=== PATIENT | male | born 1930 | race American Indian/Alaskan Native ===

== ENCOUNTER 2019-01-22 18:44 | Emergency (ER) | payer OTHER ==
[2019-01-22 19:53] VITALS: BP 147/76
[2019-01-22 20:04] LABS: Basophils % (Auto) 0.6 % (0.0-1.8); Eosinophils % (Auto) 0.4 % (0.0-4.3); Hematocrit 46.6 % (35.5-45.6); Hemoglobin 15.5 gm/dl (11.8-15.2); Lymphocytes # (Auto) 0.9 K/mm3 (1.2-5.4); Lymphocytes % (Auto) 12.6 % (13.4-35.0); Mean Corpuscular HGB Conc 33 % (32-34); Mean Corpuscular Volume 87 fl (84-94); Monocytes # (Auto) 0.6 K/mm3 (0.0-0.8); Monocytes % (Auto) 9.3 % (0.0-7.3); Platelet Count 232 K/mm3 (140-440); Red Blood Count 5.36 M/mm3 (3.65-5.03); Red Cell Distribution Width 14.1 % (13.2-15.2)
[2019-01-22 20:29] LABS: Albumin 4.3 g/dL (3.9-5); Calcium 9.6 mg/dL (8.4-10.2)
--- NOTE | 2019-01-22 21:28 | Emergency Department Report ---
ED Psych HPI - General Chief Complaint: Medical Clearance Stated Complaint: MEDICAL EVAL Time Seen by Provider: 01/22/19 20:26 Source: EMS Mode of arrival: Stretcher - History of Present Illness Initial Comments: Patient is a 88-year-old [place] male with past medical history hypertension dementia who is presenting with some aggressive behavior at this. Patient's was yelling and throwing things. The reason why the patient is actually at [place]. Patient was given some Ativan in route. Patient also is noted to have been eating and drinking less over the last several days and he was concerned that the patient may be dehydrated. Patient currently states he feels fine and has no complaints. He denies any cough, congestion pain fevers or chills. - Related Data Allergies Allergy/AdvReac Type Severity Reaction Status Date / Time Unable to Assess Allergy Unverified 01/22/19 19:07 ED Review of Systems ROS: Stated complaint: MEDICAL EVAL Other details as noted in HPI Comment: All other systems reviewed and negative ED Past Medical Hx - Past Medical History Previous Medical History?: Yes Hx Hypertension: Yes Hx Dementia: Yes - Social History Smoking Status: Former Smoker Substance Use Type: None ED Physical Exam - General Limitations: Altered Mental Status General appearance: alert, in no apparent distress - Head Head exam: Present: atraumatic, normocephalic - Eye Eye exam: Present: normal appearance - ENT ENT exam: Present: mucous membranes moist - Neck Neck exam: Present: normal inspection - Respiratory Respiratory exam: Present: normal lung sounds bilaterally. Absent: respiratory distress, wheezes, rales, rhonchi - Cardiovascular Cardiovascular Exam: Present: regular rate, normal rhythm. Absent: systolic murmur, diastolic murmur, rubs, gallop - GI/Abdominal GI/Abdominal exam: Present: soft, normal bowel sounds. Absent: distended, tenderness, guarding, rebound - Rectal Rectal exam: Present: deferred - Extremities Exam Extremities exam: Present: normal inspection - Back Exam Back exam: Present: normal inspection - Neurological Exam Neurological exam: Present: alert, oriented X3 - Psychiatric Psychiatric exam: Present: normal affect, normal mood - Skin Skin exam: Present: warm, dry, intact, normal color. Absent: rash ED Course Vital Signs 01/22/19 01/22/19 01/22/19 18:58 19:00 19:03 Temperature 98.1 F Pulse Rate 78 83 Respiratory 12 14 14 Rate Blood Pressure 147/76 145/71 O2 Sat by Pulse 97 96 96 Oximetry 01/22/19 01/22/19 01/22/19 19:16 19:17 19:30 Temperature Pulse Rate 78 81 Respiratory 17 17 14 Rate Blood Pressure 147/76 147/76 O2 Sat by Pulse 97 97 Oximetry 01/22/19 19:46 Temperature Pulse Rate 90 Respiratory 14 Rate Blood Pressure 147/76 O2 Sat by Pulse 97 Oximetry ED Medical Decision Making - Lab Data Result diagrams: 01/22/19 19:50 01/22/19 19:50 - Medical Decision Making Patient is a 88-year-old male who is brought in because of aggressive behavior and possible failure to thrive. Patient is calm and cooperative at this time he does have a sitter at bedside. Patient's laboratory studies did not show that he has any severe like to light abdomen out as patient be discharged home. Critical care attestation.: If time is entered above; I have spent that time in minutes in the direct care of this critically ill patient, excluding procedure time. ED Disposition Clinical Impression: Dementia Disposition: DC-01 TO HOME OR SELFCARE Is pt being admited?: No Does the pt Need Aspirin: No Condition: Stable Instructions: Dementia (ED) Additional Instructions: Patient is currently calm and cooperative. Patient's laboratory studies did not show any severe dehydration warranting admission. Referrals: HENRY ENNIS MD [Primary Care Provider] - 3-5 Days Time of Disposition: 21:28
== END 2019-01-22 22:29 | disposition home or self-care (01) ==
LOC: ED 18:44
DX: F03.90 Unspecified dementia, unspecified severity, without behavioral disturbance, psychotic disturbance, mood disturbance, and anxiety (principal); I10 Essential (primary) hypertension
CPT/HCPCS: 36415; 80053; 80320; 85025; G0480

== ENCOUNTER 2019-01-23 12:45 | Emergency (ER) | payer MEDICARE ==
[2019-01-23 13:11] VITALS: BP 128/62
[2019-01-23] MEDS ORDERED: NACL 0.9% 1000 ML 1,000 ML IV ONE (13:20)
--- NOTE | 2019-01-23 13:24 | Emergency Department Report ---
HPI - General Chief Complaint: Medical Clearance Time Seen by Provider: 01/23/19 13:02 - HPI HPI: Room 10 The patient is an 88-year-old male presenting with chief complaint of "not eating or drinking." The patient is currently under a 1013 at [place] for combative behavior. The patient was sent back to the ED today for evaluation because staff states he has not been eating or taking his medication. Nurse at removal was states the patient took a little bit of an sure earlier today. Patient denies complaints. Patient says she just has a decreased appetite. Patient denies nausea vomiting, abdominal pain, chest pain or shortness of breath. Location: [See above] Duration: [See above] Quality: [See above] Severity: [See above] Modifying factors: [see above] Context: [see above] Mode of transportation: [not driving] ED Past Medical Hx - Past Medical History Previous Medical History?: Yes Hx Hypertension: Yes Hx Renal Disease: Yes Hx Dementia: Yes Additional medical history: A fib - Surgical History Past Surgical History?: No - Family History Family history: no significant - Social History Smoking Status: Never Smoker Substance Use Type: None ED Review of Systems ROS: Stated complaint: FAILURE TO THRIVE Other details as noted in HPI Constitutional: no symptoms reported Eyes: denies: eye pain ENT: denies: throat pain Respiratory: no symptoms reported Cardiovascular: denies: chest pain Endocrine: no symptoms reported Gastrointestinal: denies: abdominal pain Genitourinary: denies: dysuria Musculoskeletal: denies: back pain Neurological: denies: headache Physical Exam - Physical Exam Vital Signs: Vital Signs 01/23/19 01/23/19 01/23/19 12:53 13:10 13:11 Temperature 98.3 F 98.7 F Pulse Rate 74 75 Respiratory 18 18 16 Rate Blood Pressure 131/61 Blood Pressure 128/62 [Left] O2 Sat by Pulse 97 98 98 Oximetry Physical Exam: GENERAL: The patient is well-developed well-nourished male lying on stretcher not appearing to be in acute distress. [] HEENT: Normocephalic. Atraumatic. Extraocular motions are intact. Patient has moist mucous membranes. NECK: Supple. Trachea midline CHEST/LUNGS: Clear to auscultation. There is no respiratory distress noted. HEART/CARDIOVASCULAR: Regular. There is no tachycardia. There is no gallop rub or murmur. ABDOMEN: Abdomen is soft, nontender. Patient has normal bowel sounds. There is no abdominal distention. SKIN: There is no rash. There is no edema. There is no diaphoresis. NEURO: The patient is awake, alert, and oriented. The patient is cooperative. The patient has normal speech MUSCULOSKELETAL: There is no evidence of acute injury. ED Course Vital Signs 01/23/19 01/23/19 01/23/19 12:53 13:10 13:11 Temperature 98.3 F 98.7 F Pulse Rate 74 75 Respiratory 18 18 16 Rate Blood Pressure 131/61 Blood Pressure 128/62 [Left] O2 Sat by Pulse 97 98 98 Oximetry ED Medical Decision Making - Lab Data Result diagrams: 01/23/19 15:01 01/23/19 15:01 Laboratory Tests 01/23/19 01/23/19 01/23/19 15:01 15:01 15:01 WBC 8.0 RBC 5.02 Hgb 14.5 Hct 43.5 MCV 87 MCH 29 MCHC 33 RDW 14.2 Plt Count 218 Lymph % (Auto) 16.4 [place] % (Auto) 12.2 H Eos % (Auto) 0.8 Baso % (Auto) 0.7 Lymph # 1.3 Rabun # 1.0 H Eos # 0.1 Baso # 0.1 Seg Neutrophils % 69.9 Seg Neutrophils # 5.6 PT INR APTT Sodium 140 Potassium 4.0 Chloride 101.8 Carbon Dioxide 24 Anion Gap 18 BUN 23 H Creatinine 1.4 Estimated GFR 58 BUN/Creatinine Ratio 16 Glucose 81 Calcium 9.3 Valproic Acid 7.7 L 01/23/19 15:01 WBC RBC Hgb Hct MCV MCH MCHC RDW Plt Count Lymph % (Auto) Rabun % (Auto) Eos % (Auto) Baso % (Auto) Lymph # Rabun # Eos # Baso # Seg Neutrophils % Seg Neutrophils # PT 13.2 INR 1.03 APTT 27.2 Sodium Potassium Chloride Carbon Dioxide Anion Gap BUN Creatinine Estimated GFR BUN/Creatinine Ratio Glucose Calcium Valproic Acid - Differential Diagnosis dehydration, poor appetite, dementia Critical care attestation.: If time is entered above; I have spent that time in minutes in the direct care of this critically ill patient, excluding procedure time. ED Disposition Clinical Impression: Dementia Disposition: DC/TX-65 PSY HOSP/PSY UNIT Is pt being admited?: No Does the pt Need Aspirin: No Condition: Stable Additional Instructions: Return to the emergency department immediately should you develop worsening symptoms, fever, inability to tolerate food or liquid or any other concerns. Referrals: HENRY ENNIS MD [Primary Care Provider] - 3-5 Days Time of Disposition: 15:44
[2019-01-23 15:23] LABS: Basophils # (Auto) 0.1 K/mm3 (0.0-0.1); Basophils % (Auto) 0.7 % (0.0-1.8); Eosinophils # (Auto) 0.1 K/mm3 (0.0-0.4); Eosinophils % (Auto) 0.8 % (0.0-4.3); Hematocrit 43.5 % (35.5-45.6); Hemoglobin 14.5 gm/dl (11.8-15.2); Lymphocytes # (Auto) 1.3 K/mm3 (1.2-5.4); Lymphocytes % (Auto) 16.4 % (13.4-35.0); Mean Corpuscular HGB Conc 33 % (32-34); Mean Corpuscular Volume 87 fl (84-94); Monocytes % (Auto) 12.2 % (0.0-7.3); Platelet Count 218 K/mm3 (140-440); Red Blood Count 5.02 M/mm3 (3.65-5.03); Red Cell Distribution Width 14.2 % (13.2-15.2)
[2019-01-23 15:28] LABS: INR 1.03 (0.87-1.13)
[2019-01-23 15:29] LABS: Partial Thromboplastin Time 27.2 Sec. (24.2-36.6)
[2019-01-23 15:38] LABS: Calcium 9.3 mg/dL (8.4-10.2)
== END 2019-01-23 16:46 ==
LOC: ED 12:45
DX: F03.90 Unspecified dementia, unspecified severity, without behavioral disturbance, psychotic disturbance, mood disturbance, and anxiety (principal); I10 Essential (primary) hypertension; I48.91 Unspecified atrial fibrillation
CPT/HCPCS: 36415; 80048; 80164; 85025; 85610; 85730; 99284; J7030; 96360; 96361